=== PATIENT | male | born 1950 | race African-American/Black ===

== ENCOUNTER 2019-04-09 18:59 | Emergency (ER) | payer MEDICARE, MEDICAID ==
[2019-04-09] MEDS ORDERED: LIDOCAINE 2% VISCOUS SOLN 20 ML UDCUP PO ONE (19:19)
--- NOTE | 2019-04-09 19:22 | ER Document Report ---
HPI - HPI Time Seen by Provider: 04/09/19 19:14 Pain Level: 1 Context: Patient is a 68-year-old male who presents to the emergency department with a chief complaint of a bug in his right ear. He states that it flew in there this morning and it has been there all day. He felt it moving earlier, but states that it is now not moving. - ROS Systems Reviewed and Negative: Yes All other systems reviewed and negative - EENT EENT: REPORTS: Ear Pain - but inside Past Medical History - Social History Smoking Status: Never Smoker Family History: Reviewed & Not Pertinent Patient has suicidal ideation: No Patient has homicidal ideation: No - Past Medical History Cardiac Medical History: Reports: Hx Heart Attack, Hx Hypertension - Immunizations Hx Diphtheria, Pertussis, Tetanus Vaccination: No Vertical Provider Document - CONSTITUTIONAL Agree With Documented VS: Yes Exam Limitations: No Limitations General Appearance: No Apparent Distress - INFECTION CONTROL TRAVEL OUTSIDE OF THE [place] IN LAST 30 DAYS: No - HEENT HEENT: Atraumatic, Normocephalic, PERRLA Notes: Insect noted to right external auditory canal - NECK Neck: Normal Inspection - RESPIRATORY Respiratory: No Respiratory Distress - CARDIOVASCULAR Cardiovascular: Regular Rate - MUSCULOSKELETAL/EXTREMETIES Musculoskeletal/Extremeties: FROM - NEURO Level of Consciousness: Awake, Alert Motor/Sensory: No Motor Deficit - DERM Integumentary: Warm, Dry Course - Re-evaluation Re-evalutation: 04/09/19 20:10 Hearing irrigation was done without success, therefore I took the alligator forceps and remove the bug with that. Small amount of erythema to right external auditory canal. Patient will be started on Ciprodex drops. He will follow-up with his primary care provider on Thursday. Follow-up precautions were given. Verbal discharge instructions were given to the patient. They verbalized understanding. They are stable for discharge. - Vital Signs Vital signs: Temp Pulse Resp BP Pulse Ox 97.7 F 91 16 92/71 L 96 04/09/19 19:12 04/09/19 19:12 04/09/19 19:12 04/09/19 19:12 04/09/19 19:12 Discharge - Discharge Clinical Impression: Foreign body of ear, right Qualifiers: Encounter type: initial encounter Qualified Code(s): T16.1XXA - Foreign body in right ear, initial encounter Condition: Stable Disposition: HOME, SELF-CARE Additional Instructions: You were seen for a bug in your ear. It was removed here in the ED. You are being sent home with ear drops. Place 4 drops to your right ear twice a day for 7 days. Follow up with primary care. Referrals: KATHARINE WEAVER MD [ACTIVE STAFF] - 04/11/19
[2019-04-09] MEDS ORDERED: CIPROFLOXACIN HCL/DEXAMETH OTIC DROP 7.5 ML AD ONE (20:11)
[2019-04-09 20:34] VITALS: BP 112/81
== END 2019-04-09 20:23 | disposition home or self-care (01) ==
LOC: ER 18:59
DX: T16.1XXA Foreign body in right ear, initial encounter (principal); X58.XXXA Exposure to other specified factors, initial encounter; I10 Essential (primary) hypertension
CPT/HCPCS: 69200; 99282; 96374; J3490; A9270

== ENCOUNTER 2019-04-15 08:45 | Observation (INO) | payer OTHER, MEDICARE, MEDICAID ==
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
[2019-04-15 10:24] LABS: APPEARANCE,URINE CLEAR; BILIRUBIN,URINE NEGATIVE (NEGATIVE); COLOR,URINE YELLOW; GLUCOSE, URINE NEGATIVE (NEGATIVE); KETONES,URINE NEGATIVE (NEGATIVE); PROTEIN,URINE NEGATIVE (NEGATIVE); URINE SPECIFIC GRAVITY 1.006; UROBILINOGEN,URINE NEGATIVE mg/dL (<2.0)
[2019-04-15 10:28] LABS: INTERNATIONAL RATION (INR) 1.04; PROTHROMBIN TIME 13.7 SEC (11.4-15.4)
[2019-04-15 10:32] LABS: ABSOLUTE BASOPHILS # (AUTO) 0.1 10^3/uL (0.0-0.2); ABSOLUTE EOSINOPHILS # (AUTO) 0.1 10^3/uL (0.0-0.6); ABSOLUTE LYMPHOCYTES (AUTO) 1.9 10^3/uL (0.5-4.7); ABSOLUTE MONOCYTES (AUTO) 0.6 10^3/uL (0.1-1.4); ABSOLUTE NEUT (AUTO) 3.8 10^3/uL (1.7-8.2); BASOPHILS % (AUTO) 1.3 % (0-2); EOSINOPHILS % (AUTO) 1.6 % (0-6); HEMATOCRIT 37.9 % (37.9-51.0); HEMOGLOBIN 12.7 g/dL (13.5-17.0); LYMPHOCYTES % (AUTO) 28.7 % (13-45); MEAN CORPUSCULAR HEMOGLOBIN 28.2 pg (27.0-33.4); MEAN CORPUSCULAR HGB CONC 33.5 g/dL (32.0-36.0); MEAN CORPUSCULAR VOLUME 84 fl (80-97); MONOCYTES % (AUTO) 8.8 % (3-13); PLATELET COUNT 265 10^3/uL (150-450); RED CELL DISTRIBUTION WIDTH 14.4 % (11.5-14.0); SEGMENTED NEUTROPHILS % (AUTO) 59.6 % (42-78); TOTAL CELLS COUNTED % (AUTO) 100 %; WHITE BLOOD COUNT 6.4 10^3/uL (4.0-10.5)
[2019-04-15 10:41] LABS: PARTIAL THROMBOPLASTIN TIME 28.7 SEC (23.5-35.8)
[2019-04-15 10:45] LABS: ALBUMIN 4.1 g/dL (3.5-5.0); ALKALINE PHOSPHATASE 57 U/L (38-126); ANION GAP 11 (5-19); ASPARTATE AMINO TRANSFERASE 26 U/L (17-59); BILIRUBIN,DIRECT 0.2 mg/dL (0.0-0.4); BILIRUBIN,TOTAL 0.5 mg/dL (0.2-1.3); BLOOD UREA NITROGEN 24 mg/dL (7-20); CALCIUM 9.8 mg/dL (8.4-10.2); CARBON DIOXIDE 23 mmol/L (22-30); CHLORIDE 104 mmol/L (98-107); GLUCOSE 99 mg/dL (75-110); POTASSIUM 4.8 mmol/L (3.6-5.0); TOTAL PROTEIN 7.1 g/dL (6.3-8.2)
[2019-04-15 10:46] LABS: ALCOHOL < 10 mg/dL (NONE DETECTED)
[2019-04-15 10:49] LABS: URINE AMPHETAMINES SCREEN NEGATIVE; URINE BARBITURATES SCREEN NEGATIVE; URINE BENZODIAZEPINES SCREEN NEGATIVE; URINE COCAINE SCREEN NEGATIVE; URINE MARIJUANA (THC) SCREEN NEGATIVE; URINE METHADONE SCREEN NEGATIVE; URINE PHENCYCLIDINE SCREEN NEGATIVE
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
--- NOTE | 2019-04-15 17:31 | EKG REPORT ---
SEVERITY:- ABNORMAL ECG - SINUS RHYTHM LEFT BUNDLE BRANCH BLOCK : Confirmed by: Jack Anderson 15-Apr-2019 17:30:53
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
[2019-04-15] MEDS ORDERED: DEXTROSE 50%-WATER 25 GM/50 ML DISP.SYRIN IV PRN ×2 (18:38)
[2019-04-15] MEDS ORDERED: GLUCAGON,HUMAN RECOMB 1 MG INJ IM PRN (18:38)
[2019-04-15] MEDS ORDERED: DEXTROSE 40% GEL 15 GM TUBE PO PRN ×2 (18:38)
[2019-04-15] MEDS ORDERED: (PENDING PHARMACY ID) (Benzonatate [Benzonatate] 200 MG) PO PRN (18:39)
[2019-04-15] MEDS ORDERED: BENZONATATE 100 MG CAPSULE PO PRN (18:53)
[2019-04-15] MEDS ORDERED: LATANOPROST 0.005% OPH SOLN 2.5 ML OU SCH ×2 (22:00)
[2019-04-15] MEDS ORDERED: (PENDING PHARMACY ID) (Bimatoprost [Lumigan 0.01% Oph Soln 2.5 Ml/Bottle] 1 DROP) OU SCH (22:00)
[2019-04-15] MEDS: INSULIN LISPRO 100 UNIT/ML 3 ML VIAL SUBCUT SCH (22:17)
[2019-04-15] MEDS: SACUBITRIL/VALSARTAN 24 MG/26 MG TABLET PO SCH (22:18)
[2019-04-15] MEDS: METOPROLOL SUCCINATE 25 MG TAB.SR.24H PO SCH (22:20)
[2019-04-15] MEDS: SIMVASTATIN 10 MG TABLET PO SCH (22:20)
[2019-04-15] MEDS: FUROSEMIDE 20 MG TABLET PO SCH (22:21)
[2019-04-15] MEDS: ENOXAPARIN SODIUM INJ 40 MG/0.4 ML DISP.SYRIN SUBCUT SCH (22:21)
[2019-04-15] MEDS: CLOBETASOL PROPIONATE 0.05% CREAM 15 GM TP SCH (22:22)
[2019-04-15] MEDS: LATANOPROST 0.005% OPH SOLN 2.5 ML OU SCH (22:25)
[2019-04-16] MEDS: TRAMADOL HCL 50 MG TABLET PO SCH ×5 (02:03→23:29)
[2019-04-16] MEDS: PANTOPRAZOLE SODIUM 40 MG TABLET.DR PO SCH (06:49)
[2019-04-16] MEDS: METFORMIN HCL 850 MG TABLET PO SCH ×2 (09:25→18:10)
[2019-04-16] MEDS: METOPROLOL SUCCINATE 25 MG TAB.SR.24H PO SCH (09:26)
[2019-04-16] MEDS: FUROSEMIDE 20 MG TABLET PO SCH ×2 (09:27→18:05)
[2019-04-16] MEDS: ENOXAPARIN SODIUM INJ 40 MG/0.4 ML DISP.SYRIN SUBCUT SCH (09:27)
[2019-04-16] MEDS: CLOBETASOL PROPIONATE 0.05% CREAM 15 GM TP SCH ×2 (09:28→21:42)
[2019-04-16] MEDS: INSULIN LISPRO 100 UNIT/ML 3 ML VIAL SUBCUT SCH ×4 (09:28→21:35)
[2019-04-16] MEDS: SACUBITRIL/VALSARTAN 24 MG/26 MG TABLET PO SCH ×2 (09:39→21:41)
[2019-04-16] MEDS ORDERED: CETIRIZINE 5 MG TABLET PO SCH ×2 (10:00)
[2019-04-16] MEDS ORDERED: SPIRONOLACTONE 25 MG TABLET PO SCH (10:00)
[2019-04-16] MEDS ORDERED: FLUTICASONE NASAL SPRAY 50 MCG/SPRY 120 SPRAY/16 GM NASL SCH (10:00)
[2019-04-16] MEDS ORDERED: (PENDING PHARMACY ID) (Clobetasol Propionate/Emoll [Clobetasol Emollient 0.05% Crm] 1 APPL TP SCH (10:00)
[2019-04-16] MEDS ORDERED: ASPIRIN 81 MG TABLET, ENT COATED PO SCH (10:00)
[2019-04-16] MEDS ORDERED: NORMAL SALINE 1000 ML 1,000 ML IV PRN (14:11)
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
[2019-04-16] MEDS: SIMVASTATIN 10 MG TABLET PO SCH (21:41)
[2019-04-16] MEDS: LATANOPROST 0.005% OPH SOLN 2.5 ML OU SCH (21:42)
[2019-04-17] MEDS: PANTOPRAZOLE SODIUM 40 MG TABLET.DR PO SCH (07:06)
[2019-04-17] MEDS: TRAMADOL HCL 50 MG TABLET PO SCH (07:06)
[2019-04-17] MEDS: INSULIN LISPRO 100 UNIT/ML 3 ML VIAL SUBCUT SCH (07:55)
[2019-04-17 08:02] VITALS: BP 97/75
== END 2019-04-17 08:30 | disposition home or self-care (01) ==
LOC: ER 08:45 → EH 14:22 → INTOOBSV 14:22 → EH 14:33 → 3S 16:29
PROVIDERS: ADMIT Internal Medicine Geriatric Medicine; ATTEND Internal Medicine Geriatric Medicine
DX: I95.9 Hypotension, unspecified (principal); S06.0X9A Concussion with loss of consciousness of unspecified duration, initial encounter; R40.2412 Glasgow coma scale score 13-15, at arrival to emergency department; V89.2XXA Person injured in unspecified motor-vehicle accident, traffic, initial encounter; Y92.410 Unspecified street and highway as the place of occurrence of the external cause; I42.9 Cardiomyopathy, unspecified; G89.4 Chronic pain syndrome; E11.9 Type 2 diabetes mellitus without complications; E66.9 Obesity, unspecified; I11.0 Hypertensive heart disease with heart failure; I50.42 Chronic combined systolic (congestive) and diastolic (congestive) heart failure; G47.33 Obstructive sleep apnea (adult) (pediatric); M54.2 Cervicalgia; E78.00 Pure hypercholesterolemia, unspecified; J84.89 Other specified interstitial pulmonary diseases; K21.9 Gastro-esophageal reflux disease without esophagitis; I25.10 Atherosclerotic heart disease of native coronary artery without angina pectoris; J30.1 Allergic rhinitis due to pollen; L24.9 Irritant contact dermatitis, unspecified cause; H40.9 Unspecified glaucoma; K57.90 Diverticulosis of intestine, part unspecified, without perforation or abscess without bleeding; I44.7 Left bundle-branch block, unspecified; M19.90 Unspecified osteoarthritis, unspecified site; I25.2 Old myocardial infarction; Z79.82 Long term (current) use of aspirin; Z79.899 Other long term (current) drug therapy; Z79.84 Long term (current) use of oral hypoglycemic drugs; Z95.810 Presence of automatic (implantable) cardiac defibrillator; Z87.19 Personal history of other diseases of the digestive system
CPT/HCPCS: 93005; 99285; 36415; 82962 ×3; 80307 ×2; 83735; 85025; 85610; 85730; 80053; 81001; 84484; 70450; 71260; 72125; 74177; 93010; G0378 ×4; L0120; J3490 ×7; J1650 ×2; J7030

== ENCOUNTER 2019-10-18 13:53 | Observation (INO) | payer MEDICARE, MEDICAID ==
[2019-10-18] MEDS ORDERED: NITROGLYCERIN 0.4 MG/TAB 25 TAB/BOTTLE SL PRN (14:54)
[2019-10-18 15:08] LABS: ABSOLUTE EOSINOPHILS # (AUTO) 0.1 10^3/uL (0.0-0.6); ABSOLUTE LYMPHOCYTES (AUTO) 1.9 10^3/uL (0.5-4.7); ABSOLUTE MONOCYTES (AUTO) 0.5 10^3/uL (0.1-1.4); ABSOLUTE NEUT (AUTO) 4.7 10^3/uL (1.7-8.2); BASOPHILS % (AUTO) 0.7 % (0-2); EOSINOPHILS % (AUTO) 1.7 % (0-6); HEMATOCRIT 38.6 % (37.9-51.0); HEMOGLOBIN 13.6 g/dL (13.5-17.0); LYMPHOCYTES % (AUTO) 26.4 % (13-45); MEAN CORPUSCULAR HEMOGLOBIN 29.1 pg (27.0-33.4); MEAN CORPUSCULAR HGB CONC 35.3 g/dL (32.0-36.0); MEAN CORPUSCULAR VOLUME 83 fl (80-97); PLATELET COUNT 278 10^3/uL (150-450); RED BLOOD COUNT 4.68 10^6/uL (4.35-5.55); RED CELL DISTRIBUTION WIDTH 14.4 % (11.5-14.0); SEGMENTED NEUTROPHILS % (AUTO) 64.2 % (42-78); TOTAL CELLS COUNTED % (AUTO) 100 %; WHITE BLOOD COUNT 7.3 10^3/uL (4.0-10.5)
[2019-10-18 15:30] LABS: ALBUMIN 4.4 g/dL (3.5-5.0); ALKALINE PHOSPHATASE 73 U/L (38-126); ANION GAP 10 (5-19); ASPARTATE AMINO TRANSFERASE 26 U/L (17-59); BILIRUBIN,TOTAL 0.3 mg/dL (0.2-1.3); BLOOD UREA NITROGEN 41 mg/dL (7-20); CALCIUM 9.4 mg/dL (8.4-10.2); CARBON DIOXIDE 18 mmol/L (22-30); CHLORIDE 108 mmol/L (98-107); CREATINE KINASE 116 U/L (55-170); GLUCOSE 122 mg/dL (75-110); TOTAL PROTEIN 6.9 g/dL (6.3-8.2)
[2019-10-18 15:38] LABS: CREATINE KINASE MB 1.93 ng/mL (<4.55)
[2019-10-18 15:45] LABS: TROPONIN I < 0.012 ng/mL
--- NOTE | 2019-10-18 15:52 | RADIOLOGY REPORT (SQ) ---
EXAM DESCRIPTION: CHEST 2 VIEWS IMAGES COMPLETED DATE/TIME: 10/18/2019 3:11 pm REASON FOR STUDY: chest pain COMPARISON: None. EXAM PARAMETERS: NUMBER OF VIEWS: two views TECHNIQUE: Digital Frontal and Lateral radiographic views of the chest acquired. RADIATION DOSE: NA LIMITATIONS: none FINDINGS: LUNGS AND PLEURA: No opacities, masses or pneumothorax. No pleural effusion. MEDIASTINUM AND HILAR STRUCTURES: No masses or contour abnormalities. HEART AND VASCULAR STRUCTURES: Heart size is borderline. No pulmonary edema. BONES: No acute findings. HARDWARE: Pacemaker/defibrillator. OTHER: No other significant finding. IMPRESSION: Borderline cardiomegaly without pulmonary edema. TECHNICAL DOCUMENTATION: JOB ID: [id number] 2010 [employer]- All Rights Reserved Reading location - IP/workstation name: [email or web address]
[2019-10-18] MEDS ORDERED: DEXTROSE 40% GEL 15 GM TUBE PO PRN (16:00)
[2019-10-18] MEDS ORDERED: DEXTROSE 50%-WATER SYRINGE 12.5 GM/25 ML DOSE IV PRN (16:00)
[2019-10-18] MEDS ORDERED: DEXTROSE 50%-WATER SYRINGE 25 GM/50 ML DOSE IV PRN (16:00)
[2019-10-18] MEDS ORDERED: GLUCAGON,HUMAN RECOMB 1 MG INJ IM PRN (16:00)
[2019-10-18] MEDS ORDERED: DEXTROSE 40% GEL 15 GM TUBE X 2 PO PRN (16:00)
[2019-10-18] MEDS ORDERED: INSULIN REG, HUMAN 100 UNIT/ML 3 ML VIAL (PYX) IV ONE (18:30)
[2019-10-18] MEDS ORDERED: DEXTROSE 50%-WATER 25 GM/50 ML DISP.SYRIN IV PRN (18:30)
--- NOTE | 2019-10-18 18:47 | PDOC H&P ---
History of Present Illness Admission Date/PCP: 10/18/19 13:53 KATHARINE WEAVER MD Patient complains of: Chest pain History of Present Illness: GABRIELLA CARTAGENA is a 69 year old male known to my practice who presented to the office earlier today with complain of ongoing chest pain and generalized weakness. Patient reported onset of symptom about two days ago and denied any other associated symptoms but he is a poor historian. He graded pain as 10 / 10. Localized to left side of his chest and denied any aggravating or relieving factor. His initial evaluation in the office was significant for hypotension. He was treated with for tablets of Ecotrin 81 mg po x 1 dose and due to his listed morbidities advised hospitalization on observation bed for further evaluation and management. Past Medical History Cardiac Medical History: Reports: Congestive Heart Failure, Coronary Artery Disease, Myocardial Infarction, Hyperlipidema, Hypertension Endocrine Medical History: Reports: Diabetes Mellitus Type 2 GI Medical History: Reports: Gastroesophageal Reflux Disease Musculoskeltal Medical History: Reports: Arthritis Skin Medical History: Reports: Eczema Psychiatric Medical History: Denies: Depression Past Surgical History Past Surgical History: Reports: Internal Defibrillator, Tonsillectomy Social History Smoking Status: Former Smoker Electronic Cigarette use?: No Frequency of Alcohol Use: Occasional Hx Recreational Drug Use: No Drugs: None Hx Prescription Drug Abuse: No - Advance Directive Resuscitation Status: Full Code Family History Family History: Reviewed & Not Pertinent Parental Family History Reviewed: Yes Children Family History Reviewed: Yes Sibling(s) Family History Reviewed.: Yes Medication/Allergy Home Medications: Aspirin [Ecotrin 81 mg EC Tablet] 81 mg PO DAILY 04/15/19 Benzonatate 200 mg PO Q8HP PRN 04/15/19 Bimatoprost [Lumigan 0.01% Oph Soln 2.5 ml/Bottle] 1 drop OU QHS 04/15/19 Clobetasol Propionate/Emoll [Clobetasol Emollient 0.05% Crm] 1 applic TP BID 1 06/16/18 Fluticasone Propionate [Flonase Nasal [place] 50 Mcg/[place] 16 gm] 2 sprays NASL DAILY 04/15/19 Levocetirizine Dihydrochloride [Xyzal] 5 mg PO DAILY 04/15/19 Metformin HCl 850 mg PO BID 04/15/19 Metoprolol Succinate [Toprol Xl 25 mg Tab.sr] 25 mg PO DAILY 04/15/19 Omeprazole 40 mg PO Q6AM 04/15/19 Sacubitril/Valsartan [Entresto 24 mg/26 mg Tablet] 1 tab PO Q12 04/15/19 Simvastatin [Zocor 20 mg Tablet] 20 mg PO DAILY 04/15/19 Spironolactone [Aldactone 25 mg Tablet] 25 mg PO DAILY 04/15/19 Tramadol HCl [Ultram 50 mg Tablet] 50 mg PO Q6 04/15/19 Furosemide [Lasix 20 mg Tablet] 20 mg PO DAILY #0 04/16/19 Allergies/Adverse Reactions: Garlic [From Garlic Oil] Allergy (Verified 04/15/19 10:10) morphine Allergy (Unverified 10/18/19 14:12) Review of Systems Constitutional: ABSENT: chills, fever(s), headache(s), weight gain, weight loss Eyes: ABSENT: visual disturbances Ears: ABSENT: hearing changes Cardiovascular: PRESENT: chest pain. ABSENT: dyspnea on exertion, edema, orthropnea, palpitations Respiratory: ABSENT: cough, hemoptysis Gastrointestinal: ABSENT: abdominal pain, constipation, diarrhea, hematemesis, hematochezia, nausea, vomiting Genitourinary: ABSENT: dysuria, hematuria Musculoskeletal: ABSENT: joint swelling Integumentary: ABSENT: rash, wounds Neurological: PRESENT: weakness - generalized weakness. ABSENT: abnormal gait, abnormal speech, confusion, dizziness, focal weakness, syncope Psychiatric: ABSENT: anxiety, depression, homidical ideation, suicidal ideation Endocrine: ABSENT: cold intolerance, heat intolerance, polydipsia, polyuria Hematologic/Lymphatic: ABSENT: easy bleeding, easy bruising, lymphadenopathy Allergic/Immunologic: ABSENT: seasonal rhinorrhea Physical Exam Vital Signs: Temp Pulse Resp BP Pulse Ox 97.9 82 16 97/70 100 10/18/19 14:07 Intake & Output 10/17/19 10/18/19 10/19/19 06:59 06:59 06:59 Weight 92.079 kg General appearance: PRESENT: no acute distress, obese Head exam: PRESENT: atraumatic, normocephalic Eye exam: PRESENT: conjunctiva pink, EOMI, PERRLA. ABSENT: scleral icterus Ear exam: PRESENT: normal external ear exam Mouth exam: PRESENT: moist, tongue midline Neck exam: PRESENT: full ROM. ABSENT: carotid bruit, JVD, lymphadenopathy, thyromegaly Respiratory exam: PRESENT: clear to auscultation pallavi Cardiovascular exam: PRESENT: RRR, +S1, +S2. ABSENT: diastolic murmur, rubs, systolic murmur Pulses: PRESENT: normal dorsalis pedis pul, +2 pedal pulses bilateral Vascular exam: PRESENT: normal capillary refill. ABSENT: pallor GI/Abdominal exam: PRESENT: normal bowel sounds, soft. ABSENT: distended, guarding, mass, organolmegaly, rebound, tenderness Rectal exam: PRESENT: deferred Extremities exam: ABSENT: pedal edema Musculoskeletal exam: PRESENT: ambulatory Neurological exam: PRESENT: alert, awake, oriented to person, oriented to place, oriented to time, oriented to situation, CN II-XII grossly intact. ABSENT: mo tor sensory deficit Psychiatric exam: PRESENT: appropriate affect, normal mood. ABSENT: homicidal ideation, suicidal ideation Skin exam: PRESENT: dry, intact, warm. ABSENT: cyanosis, rash Results Laboratory Results: 10/18/19 14:54 10/18/19 14:54 10/18/19 10/18/19 14:54 14:54 WBC 7.3 RBC 4.68 Hgb 13.6 Hct 38.6 MCV 83 MCH 29.1 MCHC 35.3 RDW 14.4 H Plt Count 278 Seg Neutrophils % 64.2 Sodium 135.9 L Potassium 6.0 H* Chloride 108 H Carbon Dioxide 18 L Anion Gap 10 BUN 41 H Creatinine 1.61 H Est GFR ( Amer) 51 L Glucose 122 H Calcium 9.4 Total Bilirubin 0.3 AST 26 Alkaline Phosphatase 73 Total Protein 6.9 Albumin 4.4 10/18/19 10/18/19 14:54 14:54 Creatine Kinase 116 CK-MB (CK-2) 1.93 Troponin I < 0.012 Impressions: Chest X-Ray 10/18/19 14:24 IMPRESSION: Borderline cardiomegaly without pulmonary edema. Assessment & Plan - Diagnosis (1) Chest pain with high risk for cardiac etiology Is this a current diagnosis for this admission?: Yes Plan: See admitting attending physician orders for details. (2) Hypotension Qualifiers: Hypotension type: unspecified hypotension type Qualified Code(s): I95.9 - Hypotension, unspecified Is this a current diagnosis for this admission?: Yes Plan: See admitting attending physician orders for details. (3) Left bundle branch block (LBBB) Is this a current diagnosis for this admission?: Yes Plan: See admitting attending physician orders for details. (4) Hyperkalemia Is this a current diagnosis for this admission?: Yes Plan: See admitting attending physician orders for details. (5) Cardiomyopathy Qualifiers: Cardiomyopathy type: unspecified Qualified Code(s): I42.9 - Cardiomyopathy, unspecified Is this a current diagnosis for this admission?: Yes Plan: See admitting attending physician orders for details. (6) Chronic combined systolic and diastolic CHF (congestive heart failure) Is this a current diagnosis for this admission?: Yes Plan: See admitting attending physician orders for details. (7) Diabetes mellitus type 2 in obese Is this a current diagnosis for this admission?: Yes Plan: See admitting attending physician orders for details. (8) HTN (hypertension) Qualifiers: Hypertension type: essential hypertension Qualified Code(s): I10 - Essenti al (primary) hypertension Is this a current diagnosis for this admission?: Yes Plan: See admitting attending physician orders for details. (9) HLD (hyperlipidemia) Qualifiers: Hyperlipidemia type: pure hypercholesterolemia Qualified Code(s): E78.00 - Pure hypercholesterolemia, unspecified; E78.0 - Pure hypercholesterolemia Is this a current diagnosis for this admission?: Yes Plan: See admitting attending physician orders for details. (10) GERD (gastroesophageal reflux disease) Qualifiers: Esophagitis presence: without esophagitis Qualified Code(s): K21.9 - Gastro-esophageal reflux disease without esophagitis Is this a current diagnosis for this admission?: Yes Plan: See admitting attending physician orders for details. (11) ISSAC (obstructive sleep apnea) Is this a current diagnosis for this admission?: Yes Plan: See admitting attending physician orders for details. - Time Time Spent: 50 to 70 Minutes Medications reviewed and adjusted accordingly: Yes Anticipated discharge: Home Within: Other - Inpatient Certification Based on my medical assessment, after consideration of the patient's comorbidities, presenting symptoms, or acuity I expect that the services needed warrant INPATIENT care.: Yes I certify that my determination is in accordance with my understanding of Medicare's requirements for reasonable and necessary INPATIENT services [42 CFR 412.3e].: Yes Medical Necessity: Significant Comorbidiites Make Outpatient Treatment Too Risky, Need Close Monitoring Due to Risk of Patient Decompensation, Need For Continuous Telemetry Monitoring, Risk of Complication if Not Cared For in Hospital, Risk of Diagnosis Which Will Require Inpatient Eval/Care/Monitoring 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
[2019-10-18] MEDS: INSULIN LISPRO 100 UNIT/ML 3 ML VIAL SUBCUT SCH ×2 (18:52→22:35)
[2019-10-18] MEDS ORDERED: CALCIUM GLUCONATE 1000 MG/10 ML INJ IV ONE (19:00)
[2019-10-18 21:47] LABS: CREATINE KINASE MB 1.74 ng/mL (<4.55)
[2019-10-18 21:49] LABS: TROPONIN I < 0.012 ng/mL
[2019-10-19 03:11] LABS: CREATINE KINASE MB 1.55 ng/mL (<4.55); TROPONIN I 0.015 ng/mL
[2019-10-19] MEDS: INSULIN LISPRO 100 UNIT/ML 3 ML VIAL SUBCUT SCH ×4 (08:03→22:09)
[2019-10-19] MEDS: ASPIRIN 81 MG TABLET, ENT COATED PO SCH (09:56)
[2019-10-19] MEDS: ENOXAPARIN SODIUM INJ 40 MG/0.4 ML DISP.SYRIN SUBCUT SCH (09:56)
[2019-10-19] MEDS: PANTOPRAZOLE SODIUM 40 MG TABLET.DR PO SCH (09:56)
--- NOTE | 2019-10-19 13:21 | EKG REPORT ---
SEVERITY:- ABNORMAL ECG - SINUS RHYTHM LEFT BUNDLE BRANCH BLOCK : Confirmed by: Jack Anderson 19-Oct-2019 13:21:00
[2019-10-19] MEDS ORDERED: ALBUTEROL SULFATE HFA (90 MCG/PUFF) 8 GM MDI (1 MDI/ER DISP) IH PRN (17:16)
--- NOTE | 2019-10-19 17:26 | PDOC PROGRESS REPORT ---
Subjective Progress Note for:: 10/19/19 Subjective:: Patient reported slight chest pain this morning but he did not inform the nursing staff. No difficulty with breathing. No fever or chills. No coughing. No leg swelling. No nausea, vomiting, or abdominal pain. Reason For Visit: CHEST PAIN,HYPOTENSION Physical Exam Vital Signs: Temp Pulse Resp BP Pulse Ox 97.6 F 72 18 107/62 99 10/18/19 23:17 10/19/19 14:00 10/18/19 23:17 10/18/19 23:17 10/18/19 23:17 Intake & Output 10/18/19 10/19/19 10/20/19 06:59 06:59 06:59 Intake Total 2039 770 Balance 2039 770 Weight 91.4 kg General appearance: PRESENT: no acute distress Head exam: PRESENT: atraumatic, normocephalic Eye exam: PRESENT: conjunctiva pink, EOMI, PERRLA. ABSENT: scleral icterus Ear exam: PRESENT: normal external ear exam Mouth exam: PRESENT: moist, tongue midline Neck exam: PRESENT: full ROM. ABSENT: carotid bruit, JVD, lymphadenopathy, thyromegaly Respiratory exam: PRESENT: clear to auscultation pallavi, decreased breath sounds - at lungbases Cardiovascular exam: PRESENT: RRR, +S1, +S2. ABSENT: diastolic murmur, rubs, systolic murmur Pulses: PRESENT: normal dorsalis pedis pul, +2 pedal pulses bilateral Vascular exam: PRESENT: normal capillary refill. ABSENT: pallor GI/Abdominal exam: PRESENT: normal bowel sounds, soft. ABSENT: distended, guarding, mass, organolmegaly, rebound, tenderness Rectal exam: PRESENT: deferred Extremities exam: ABSENT: pedal edema Neurological exam: PRESENT: alert, awake, oriented to person, oriented to place, oriented to time, oriented to situation, CN II-XII grossly intact. ABSENT: motor sensory deficit Psychiatric exam: PRESENT: appropriate affect, normal mood. ABSENT: homicidal ideation, suicidal ideation Skin exam: PRESENT: dry, intact, warm. ABSENT: cyanosis, rash Results Laboratory Results: 10/18/19 14:54 10/18/19 14:54 10/18/19 10/18/19 10/18/19 14:54 14:54 20:38 Creatine Kinase 116 84 CK-MB (CK-2) 1.93 Troponin I < 0.012 10/18/19 10/19/19 10/19/19 20:38 02:33 02:33 Creatine Kinase 85 CK-MB (CK-2) 1.74 1.55 Troponin I < 0.012 0.015 Impressions: Chest X-Ray 10/18/19 14:24 IMPRESSION: Borderline cardiomegaly without pulmonary edema. Assessment & Plan - Diagnosis (1) Chest pain with high risk for cardiac etiology Is this a current diagnosis for this admission?: Yes (2) Hypotension Qualifiers: Hypotension type: unspecified hypotension type Qualified Code(s): I95.9 - Hypotension, unspecified Is this a current diagnosis for this admission?: Yes (3) Left bundle branch block (LBBB) Is this a current diagnosis for this admission?: Yes (4) Hyperkalemia Is this a current diagnosis for this admission?: Yes (5) Cardiomyopathy Qualifiers: Cardiomyopathy type: unspecified Qualified Code(s): I42.9 - Cardiomyopathy, unspecified Is this a current diagnosis for this admission?: Yes (6) Chronic combined systolic and diastolic CHF (congestive heart failure) Is this a current diagnosis for this admission?: Yes (7) Diabetes mellitus type 2 in obese Is this a current diagnosis for this admission?: Yes (8) HTN (hypertension) Qualifiers: Hypertension type: essential hypertension Qualified Code(s): I10 - Essential (primary) hypertension Is this a current diagnosis for this admission?: Yes (9) HLD (hyperlipidemia) Qualifiers: Hyperlipidemia type: pure hypercholesterolemia Qualified Code(s): E78.00 - Pure hypercholesterolemia, unspecified; E78.0 - Pure hypercholesterolemia Is this a current diagnosis for this admission?: Yes (10) GERD (gastroesophageal reflux disease) Qualifiers: Esophagitis presence: without esophagitis Qualified Code(s): K21.9 - Gastro-esophageal reflux disease without esophagitis Is this a current diagnosis for this admission?: Yes (11) ISSAC (obstructive sleep apnea) Is this a current diagnosis for this admission?: Yes - Time Time Spent with patient: 25-34 minutes Level of Care: IMCU Medications reviewed and adjusted accordingly: Yes Anticipated discharge: Home Within: Other - Inpatient Certification Based on my medical assessment, after consideration of the patient's comorbidities, presenting symptoms, or acuity I expect that the services needed warrant INPATIENT care.: Yes I certify that my determination is in accordance with my understanding of Medicare's requirements for reasonable and necessary INPATIENT services [42 CFR 412.3e].: Yes Medical Necessity: Significant Comorbidiites Make Outpatient Treatment Too Risky, Need Close Monitoring Due to Risk of Patient Decompensation, Need For Continuous Telemetry Monitoring, Risk of Complication if Not Cared For in Hospital, Risk of Diagnosis Which Will Require Inpatient Eval/Care/Monitoring 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 Obtain BMP. Hold Metformin, Spironolactone and Entresto pending BMP findings regarding hyperkalemia.
[2019-10-19] MEDS ORDERED: ALBUTEROL SULFATE HFA (90 MCG/PUFF) 200 PUFF/8.5 GM MDI IH PRN (17:35)
[2019-10-19] MEDS: FUROSEMIDE 20 MG TABLET PO SCH (18:00)
[2019-10-19] MEDS ORDERED: (PENDING PHARMACY ID) (Azelastine Hcl [Azelastine Hcl] 2 SPRAY) NASL SCH (18:00)
[2019-10-19] MEDS ORDERED: (PENDING PHARMACY ID) (Bimatoprost [Lumigan 0.01% Oph Soln 2.5 Ml/Bottle] 1 DROP) OU SCH ×2 (18:00→22:00)
[2019-10-19 18:50] LABS: ANION GAP 6 (5-19); BLOOD UREA NITROGEN 23 mg/dL (7-20); CALCIUM 9.5 mg/dL (8.4-10.2); CARBON DIOXIDE 23 mmol/L (22-30); CHLORIDE 104 mmol/L (98-107); GLUCOSE 178 mg/dL (75-110); POTASSIUM 4.9 mmol/L (3.6-5.0)
[2019-10-19] MEDS ORDERED: LATANOPROST 0.005% OPH SOLN 2.5 ML OU SCH (20:00)
[2019-10-19] MEDS: TRAMADOL HCL 50 MG TABLET PO PRN (20:34)
[2019-10-19] MEDS ORDERED: SIMVASTATIN 10 MG TABLET PO SCH (22:00)
[2019-10-19] MEDS: SACUBITRIL/VALSARTAN 24 MG/26 MG TABLET PO SCH (22:09)
[2019-10-20 07:52] VITALS: BP 124/87
[2019-10-20] MEDS: INSULIN LISPRO 100 UNIT/ML 3 ML VIAL SUBCUT SCH (07:52)
--- NOTE | 2019-10-20 08:49 | PDOC DISCHARGE SUMMARY ---
Impression - Admit/DC Date/PCP Admission Date/Primary Care Provider: 10/18/19 13:53 KATHARINE WEAVER MD Discharge Date: 10/20/19 - Discharge Diagnosis (1) Chest pain with high risk for cardiac etiology Is this a current diagnosis for this admission?: Yes (2) Hypotension Is this a current diagnosis for this admission?: Yes (3) Left bundle branch block (LBBB) Is this a current diagnosis for this admission?: Yes (4) Hyperkalemia Is this a current diagnosis for this admission?: Yes (5) Cardiomyopathy Is this a current diagnosis for this admission?: Yes (6) Chronic combined systolic and diastolic CHF (congestive heart failure) Is this a current diagnosis for this admission?: Yes (7) Diabetes mellitus type 2 in obese Is this a current diagnosis for this admission?: Yes (8) HTN (hypertension) Is this a current diagnosis for this admission?: Yes (9) HLD (hyperlipidemia) Is this a current diagnosis for this admission?: Yes (10) GERD (gastroesophageal reflux disease) Is this a current diagnosis for this admission?: Yes (11) ISSAC (obstructive sleep apnea) Is this a current diagnosis for this admission?: Yes - Assessment Summary: Patient was admitted for chest pain to rule out cardiac source. He ruled out with serial cardiac enzymes. His symptoms did resolved with an episode yesterday morning that he did not report to the nursing staff. He denied any difficulty with breathing. No palpitation, diaphoresis, nausea, or vomiting. He had hyperkalemia with renal indices suggestive of prerenal azotemia that is related to his medication regimen including Entresto Furosemide, and Spironolactone. This medications were on hold and he was appropriately treated with resolution of his hyperkalemia. He will be discharged home on [place] 8.4gm po daily but I was not able to include this in his discharge medication list due to system limitation. He will be discharge home today and follow up in the office as instructed upon discharge. - Additional Information Resuscitation Status: Full Code Discharge Activity: Activity As Tolerated, Balance Activity w/Rest Referrals: RICCARDO DAY MD [Primary Care Provider] - (WRONG PCP) KATHARINE WEAVER MD [ACTIVE STAFF] - 11/01/19 8:30 am Home Medications: Aspirin [Ecotrin 81 mg EC Tablet] 81 mg PO DAILY 04/15/19 Bimatoprost [[place]um[place] 0.01% Oph Soln 2.5 ml/Bottle] 1 drop OU QHS 04/15/19 Clobetasol Propionate/Emoll [Clobetasol Emollient 0.05% Crm] 1 applic TP BID 04/15/19 Fluticasone Propionate [Flonase Nasal [place] 50 Mcg/[place] 16 gm] 2 sprays NASL DAILY 04/15/19 Levocetirizine Dihydrochloride [Xyzal] 5 mg PO DAILY 04/15/19 Metformin HCl 850 mg PO BID 04/15/19 Metoprolol Succinate [Toprol Xl 25 mg Tab.sr] 25 mg PO DAILY 04/15/19 Omeprazole 40 mg PO Q6AM 04/15/19 Sacubitril/Valsartan [Entresto 24 mg/26 mg Tablet] 1 tab PO Q12 04/15/19 Simvastatin [Zocor 20 mg Tablet] 20 mg PO DAILY 04/15/19 Spironolactone [Aldactone 25 mg Tablet] 25 mg PO DAILY 04/15/19 Tramadol HCl [Ultram 50 mg Tablet] 50 mg PO Q6HP PRN 04/15/19 Albuterol Sulfate [Albuterol Sulfate Hfa] 2 puff IH Q4HP PRN 10/19/19 Azelastine HCl 2 spray NASL BID 10/19/19 Furosemide [Lasix 20 mg Tablet] 20 mg PO BID 10/19/19 Latanoprost [Xalatan 0.005% Oph Soln 2.5 ml] 1 drop OU QPM 10/19/19 History of Present Illiness History of Present Illness: GABRIELLA CARTAGENA is a 69 year old male known to my practice who presented to the office earlier today with complain of ongoing chest pain and generalized weakness. Patient reported onset of symptom about two days ago and denied any other associated symptoms but he is a poor historian. He graded pain as 10/10. Localized to left side of his chest and denied any aggravating or relieving factor. His initial evaluation in the office was significant for hypotension. He was treated with for tablets of Ecotrin 81 mg po x 1 dose and due to his listed morbidities advised hospitalization on observation bed for further evaluation and management. Hospital Course Hospital Course: Patient was admitted for chest pain to rule out cardiac source. He ruled out with serial cardiac enzymes. His symptoms did resolved with an episode yesterday morning that he did not report to the nursing staff. He denied any difficulty with breathing. No palpitation, diaphoresis, nausea, or vomiting. He had hyperkalemia with renal indices suggestive of prerenal azotemia that is related to his medication regimen including Entresto Furosemide, and Spironolactone. This medications were on hold and he was appropriately treated with resolution of his hyperkalemia. He will be discharged home on [place] 8.4gm po daily but I was not able to include this in his discharge medication list due to system limitation. He will be discharge home today and follow up in the office as instructed upon discharge. Physical Exam Vital Signs: Temp Pulse Resp BP Pulse Ox 97.5 F 90 18 124/87 H 100 10/20/19 08:24 10/20/19 08:24 10/20/19 08:24 10/20/19 08:24 10/20/19 08:24 Intake & Output 10/19/19 10/20/19 10/21/19 06:59 06:59 06:59 Intake Total 0 1230 Balance 2040 1230 Weight 91.4 kg 92.3 kg General appearance: PRESENT: no acute distress Head exam: PRESENT: atraumatic, normocephalic Eye exam: PRESENT: conjunctiva pink. ABSENT: pallor, scleral icterus Mouth exam: PRESENT: moist, tongue midline Neck exam: PRESENT: full ROM. Respiratory exam: PRESENT: clear to auscultation pallavi Cardiovascular exam: PRESENT: RRR, +S1, +S2. ABSENT: diastolic murmur, rubs, systolic murmur GI/Abdominal exam: PRESENT: normal bowel sounds, soft. ABSENT: distended, guarding, mass, organomegaly, rebound, tenderness Extremities exam: ABSENT: pedal edema Neurological exam: PRESENT: alert, awake, oriented to person, oriented to place, oriented to time, oriented to situation, CN II-XII grossly intact. ABSENT: motor sensory deficit Psychiatric exam: PRESENT: appropriate affect, normal mood. ABSENT: homicidal ideation, suicidal ideation Skin exam: PRESENT: dry, intact, warm. ABSENT: cyanosis, rash Results Laboratory Results: WBC 7.3 10^3/uL (4.0-10.5) 10/18/19 14:54 RBC 4.68 10^6/uL (4.35-5.55) 10/18/19 14:54 Hgb 13.6 g/dL (13.5-17.0) 10/18/19 14:54 Hct 38.6 % (37.9-51.0) 10/18/19 14:54 MCV 83 fl (80-97) 10/18/19 14:54 MCH 29.1 pg (27.0-33.4) 10/18/19 14:54 MCHC 35.3 g/dL (32.0-36.0) 10/18/19 14:54 RDW 14.4 % (11.5-14.0) H 10/18/19 14:54 Plt Count 278 10^3/uL (150-450) 10/18/19 14:54 Lymph % (Auto) 26.4 % (13-45) 10/18/19 14:54 [place] % (Auto) 7.0 % (3-13) 10/18/19 14:54 Eos % (Auto) 1.7 % (0-6) 10/18/19 14:54 Baso % (Auto) 0.7 % (0-2) 10/18/19 14:54 Absolute Neuts (auto) 4.7 10^3/uL (1.7-8.2) 10/18/19 14:54 Absolute Lymphs (auto) 1.9 10^3/uL (0.5-4.7) 10/18/19 14:54 Absolute Monos (auto) 0.5 10^3/uL (0.1-1.4) 10/18/19 14:54 Absolute Eos (auto) 0.1 10^3/uL (0.0-0.6) 10/18/19 14:54 Absolute Basos (auto) 0.0 10^3/uL (0.0-0.2) 10/18/19 14:54 Seg Neutrophils % 64.2 % (42-78) 10/18/19 14:54 Sodium 133.1 mmol/L (137-145) L 10/19/19 18:16 Potassium 4.9 mmol/L (3.6-5.0) 10/19/19 18:16 Chloride 104 mmol/L (98-107) 10/19/19 18:16 Carbon Dioxide 23 mmol/L (22-30) 10/19/19 18:16 Anion Gap 6 (5-19) 10/19/19 18:16 BUN 23 mg/dL (7-20) H 10/19/19 18:16 Creatinine 1.14 mg/dL (0.52-1.25) 10/19/19 18:16 Est GFR ( Amer) > 60 (>60) 10/19/19 18:16 Est GFR (MDRD) Non-Af > 60 (>60) 10/19/19 18:16 Glucose 178 mg/dL (75-110) H 10/19/19 18:16 POC Glucose 131 mg/dL (70-110) H 10/20/19 07:44 Calcium 9.5 mg/dL (8.4-10.2) 10/19/19 18:16 Total Bilirubin 0.3 mg/dL (0.2-1.3) 10/18/19 14:54 Direct Bilirubin 0.0 mg/dL (0.0-0.4) 10/18/19 14:54 Neonat Total Bilirubin Not Reportable 10/18/19 14:54 Neonat Direct Bilirubin Not Reportable 10/18/19 14:54 Neonat Indirect Bili Not Reportable 10/18/19 14:54 AST 26 U/L (17-59) 10/18/19 14:54 ALT 20 U/L (<50) 10/18/19 14:54 Alkaline Phosphatase 73 U/L (38-126) 10/18/19 14:54 Creatine Kinase 85 U/L (55-170) 10/19/19 02:33 CK-MB (CK-2) 1.55 ng/mL (<4.55) 10/19/19 02:33 Troponin I 0.015 ng/mL 10/19/19 02:33 Total Protein 6.9 g/dL (6.3-8.2) 10/18/19 14:54 Albumin 4.4 g/dL (3.5-5.0) 10/18/19 14:54 10/18/19 10/18/19 10/19/19 14:54 20:38 02:33 CK-MB (CK-2) 1.93 1.74 1.55 Troponin I < 0.012 < 0.012 0.015 Impressions: Chest X-Ray 10/18/19 14:24 IMPRESSION: Borderline cardiomegaly without pulmonary edema. Plan Health Concerns: Compliance with medication, fluid, and dietary restrictions. High risk for readmission. Plan of Treatment: Close follow up and medication adjustment. Goals: Reduce readmission risk and improve compliance with management. Time Spent: Greater than 30 Minutes Stroke Is this a Stroke Patient?: No Acute Heart Failure - Is this a Heart Failure Patient?: No
[2019-10-20] MEDS: ENOXAPARIN SODIUM INJ 40 MG/0.4 ML DISP.SYRIN SUBCUT SCH (09:01)
[2019-10-20] MEDS: PANTOPRAZOLE SODIUM 40 MG TABLET.DR PO SCH (09:03)
[2019-10-20] MEDS: ASPIRIN 81 MG TABLET, ENT COATED PO SCH (09:03)
[2019-10-20] MEDS: TRAMADOL HCL 50 MG TABLET PO PRN (09:04)
[2019-10-20] MEDS: SACUBITRIL/VALSARTAN 24 MG/26 MG TABLET PO SCH (09:04)
[2019-10-20] MEDS: FUROSEMIDE 20 MG TABLET PO SCH (09:04)
[2019-10-20] MEDS ORDERED: METOPROLOL SUCCINATE 25 MG TAB.SR.24H PO SCH (10:00)
[2019-10-20] MEDS ORDERED: SPIRONOLACTONE 25 MG TABLET PO SCH (10:00)
[2019-10-20] MEDS ORDERED: FLUTICASONE NASAL SPRAY 50 MCG/SPRY 120 SPRAY/16 GM NASL SCH (10:00)
[2019-10-20] MEDS ORDERED: CETIRIZINE 5 MG TABLET PO SCH (10:00)
== END 2019-10-20 09:58 | disposition home or self-care (01) ==
LOC: 3W 13:53
PROVIDERS: ADMIT Internal Medicine Geriatric Medicine; ATTEND Internal Medicine Geriatric Medicine
DX: R07.9 Chest pain, unspecified (principal); I95.9 Hypotension, unspecified; I44.7 Left bundle-branch block, unspecified; E87.5 Hyperkalemia; I42.9 Cardiomyopathy, unspecified; I11.0 Hypertensive heart disease with heart failure; I50.42 Chronic combined systolic (congestive) and diastolic (congestive) heart failure; E11.9 Type 2 diabetes mellitus without complications; E66.9 Obesity, unspecified; E78.5 Hyperlipidemia, unspecified; K21.9 Gastro-esophageal reflux disease without esophagitis; G47.33 Obstructive sleep apnea (adult) (pediatric); Z79.82 Long term (current) use of aspirin; Z79.899 Other long term (current) drug therapy; Z79.84 Long term (current) use of oral hypoglycemic drugs; Z79.891 Long term (current) use of opiate analgesic; I25.2 Old myocardial infarction; I25.10 Atherosclerotic heart disease of native coronary artery without angina pectoris; Z95.810 Presence of automatic (implantable) cardiac defibrillator; Z87.891 Personal history of nicotine dependence; Z88.5 Allergy status to narcotic agent
CPT/HCPCS: 36415 ×2; 82553 ×2; 82962 ×3; 82550 ×2; 85025; 80048; 80053; 84484 ×2; 71046; 93005; 93010; G0378 ×3; A9270 ×16; J0610; J3490; J1815

== ENCOUNTER → 2019-12-14 | Outpatient (CLI) | payer MEDICARE, MEDICAID ==
--- NOTE | 2019-12-14 12:10 | RADIOLOGY REPORT (SQ) ---
EXAM DESCRIPTION: NM GASTRIC EMPTYING STUDY IMAGES COMPLETED DATE/TIME: 12/14/2019 11:00 am REASON FOR STUDY: NAUSEA (R11.0) R11.0 NAUSEA COMPARISON: None. RADIONUCLIDE AND DOSE: 2 millicuries Tc-99m Sulfur Colloid. Egg salad sandwich The route of agent administration: Oral. TECHNIQUE: 1 minute serial static imaging performed at time of meal, 1 hour, 2 hours, 3 hours, and 4 hours as needed. Once stomach reaches 90% emptying, the test is complete. Image intensity values pl otted with respect to time with linear regression algorithm. LIMITATIONS: None. FINDINGS: Patient was observed for 2 hours. Immediate post meal serves as baseline. Gastric emptying at 30 minutes was 73.7%. Gastric emptying at 60 minutes was 89.4% Gastric emptying at 90 minutes was 95.5%. Gastric emptying at 120 minutes was 98.1%. Normal values: 60 minutes: 30-90% retained. If less than 30%, abnormally rapid emptying. If greater than 90%, delaye d gastric emptying. 120 minutes: <60% retained. If greater than 60%, delayed gastric emptying. 240 minutes: <10% retained. If greater than 10%, delayed gastric emptying. IMPRESSION: Abnormally rapid gastric emptying. TECHNICAL DOCUMENTATION: JOB ID: [id number] 2010 [employer]- All Rights Reserved rev-09/11 Reading location - IP/workstation name: [email or web address]
== END ==
LOC: RAD 07:06
PROVIDERS: ATTEND Internal Medicine Geriatric Medicine
DX: R11.0 Nausea (principal)
CPT/HCPCS: 78264; A9541